=== PATIENT | male | born 1950 | race Caucasian/White ===

== ENCOUNTER 2017-08-03 06:00 | Emergency (ER) | payer OTHER ==
[2017-08-03] MEDS ORDERED: LIDOCAINE 1% INJ-PF (10 MG/ML) 30 ML SDV INJ ONE (06:27)
[2017-08-03] MEDS ORDERED: DIPH/PERTUSS(ACELL)/TETANUS VAC/PF 0.5 ML SYR (>=10YO) IM ONE (06:29)
--- NOTE | 2017-08-03 06:37 | ER Document Report ---
ED General - General Chief Complaint: Laceration Stated Complaint: LACERATION TO FINGER Time Seen by Provider: 08/03/17 06:16 Mode of Arrival: Medic Information source: Patient Notes: 66-year-old male who is on Plavix presents with a laceration to his left hand first digit. Patient notes he was drinking tonight 3-4 beers, pt dneies any other injuries. pt found covered in blood TRAVEL OUTSIDE OF THE [place] IN LAST 30 DAYS: No - HPI Onset: Just prior to arrival Onset/Duration: Sudden Quality of pain: No pain Severity: Mild Pain Level: Denies Associated symptoms: Other Exacerbated by: Denies Relieved by: Denies Similar symptoms previously: No Recently seen / treated by doctor: No - Related Data Allergies/Adverse Reactions: No Known Allergies Allergy (Verified 08/03/17 06:17) Past Medical History - Social History Smoking Status: Unknown if Ever Smoked Cigarette use (# per day): No Chew tobacco use (# tins/day): No Smoking Education Provided: No Family History: Reviewed & Not Pertinent Patient has suicidal ideation: No Patient has homicidal ideation: No - Past Medical History Cardiac Medical History: Reports: Hx Heart Attack, Hx Hypertension Pulmonary Medical History: Reports: Hx COPD Renal/ Medical History: Denies: Hx Peritoneal Dialysis Review of Systems - Review of Systems Notes: REVIEW OF SYSTEMS: CONSTITUTIONAL : Denies fever, chills, or sweats. Denies recent illness. EENT: Denies eye, ear, throat, or mouth pain or symptoms. Denies nasal or sinus congestion or discharge. Denies throat, tongue, or mouth swelling or difficulty swallowing. CARDIOVASCULAR: Denies chest pain. Denies palpitations or racing or irregular heart beat. Denies ankle edema. RESPIRATORY: Denies cough, cold, or chest congestion. Denies shortness of breath, difficulty breathing, or wheezing. GASTROINTESTINAL: Denies abdominal pain or distention. Denies nausea, vomiting , or diarrhea. Denies blood in vomitus, stools, or per rectum. Denies black, tarry stools. Denies constipation. GENITOURINARY: Denies difficulty urinating, painful urination, burning, frequency, blood in urine, or discharge. MUSCULOSKELETAL: Denies back or neck pain or stiffness. Denies joint pain or swelling. SKIN: admits to laceration HEMATOLOGIC : admits to easy bleeding LYMPHATIC: Denies swollen, enlarged glands. NEUROLOGICAL: Denies confusion or altered mental status. Denies passing out or loss of consciousness. Denies dizziness or lightheadedness. Denies headache. Denies weakness or paralysis or loss of use of either side. Denies problems with gait or speech. Denies sensory loss, numbness, or tingling. Denies seizures. PSYCHIATRIC: Denies anxiety or stress. Denies depression, suicidal ideation, or homicidal ideation. ALL OTHER SYSTEMS REVIEWED AND NEGATIVE. PHYSICAL EXAMINATION: GENERAL: Well-appearing, well-nourished and in no acute distress. HEAD: Atraumatic, normocephalic. EYES: Pupils equal round and reactive to light, extraocular movements intact, conjunctiva are normal. ENT: Nares patent, oropharynx clear without exudates. Moist mucous membranes. NECK: Normal range of motion, supple without lymphadenopathy LUNGS: Breath sounds clear to auscultation bilaterally and equal. No wheezes rales or rhonchi. HEART: Regular rate and rhythm without murmurs ABDOMEN: Soft, nontender, nondistended abdomen. No guarding, no rebound. No masses appreciated. Musculoskeletal: Normal range of motion, no pitting or edema. No cyanosis. NEUROLOGICAL: Cranial nerves grossly intact. Normal speech, normal gait. Normal sensory, motor exams PSYCH: Normal mood, normal affect. SKIN: laceration 4cm of the thumb palm concerning for arterial bleed. pt is covered in dried/fresh blood, washed extensively by staff, no other injuries noted Dictation was performed using [employer] voice recognition software Physical Exam - Vital signs Vitals: Pulse Ox 97 08/03/17 06:14 Course - Re-evaluation Re-evalutation: 08/03/17 06:52 Patient was completely covered in blood, the only injury found was a laceration of the finger, blood work pending, I did contact the surgeon Dr. Tirado for my concerns of arterial bleed he is evaluating the patient at this time 08/03/17 07:03 Patient's laceration was repaired by the surgeon, splint was placed. he requests follow up for wound rechecks as well as antibiotics for 5 days After performing a Medical Screening Examination, I estimate there is LOW risk for OPEN FRACTURE, COMPARTMENT SYNDROME, TENDON RUPTURE, ACUTE NEUROVASCULAR INJURY, or RETAINED FOREIGN BODY, thus I consider the discharge disposition reasonable. Also, there is no evidence or peritonitis, sepsis, or toxicity. I have reevaluated this patient multiple times and no significant life threatening changes are noted. The patient and I have discussed the diagnosis and risks, and we agree with discharging home with close follow-up with the understanding that symptoms and presentations can change. We also discussed returning to the Emergency Department immediately if new or worsening symptoms occur. We have discussed the symptoms which are most concerning (e.g., changing or worsening pain, fever, numbness, weakness, cool or painful digits) that necessitate immediate return. 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, Alcohol use Finger laceration Qualifiers: Encounter type: initial encounter Finger: thumb Damage to nail status: without damage Foreign body presence: unspecified Laterality: left Qualified Code(s): S61.012A - Laceration without foreign body of left thumb without damage to nail , initial encounter Condition: Stable Disposition: HOME, SELF-CARE Instructions: Laceration Care ([facility]) Additional Instructions: Follow-up for wound recheck in 3 days, please take antibiotics appropriately, return immediately if there is any sign of infection worsening bleeding or any other concerns Return for removal of sutures in 2 weeks Prescriptions: Cephalexin Monohydrate [Keflex 500 mg Capsule] 500 mg PO Q6H 5 Days capsule Referrals: ADEN SUAZO DO [ACTIVE STAFF] - 08/06/17
[2017-08-03 06:47] LABS: ALANINE AMINOTRANSFERASE 21 U/L (21-72); ALBUMIN 4.3 g/dL (3.5-5.0); ALCOHOL 108 mg/dL (NONE DETECTED); ALKALINE PHOSPHATASE 50 U/L (38-126); ANION GAP 12 (5-19); ASPARTATE AMINO TRANSFERASE 16 U/L (17-59); BILIRUBIN,DIRECT 0.1 mg/dL (0.0-0.4); BILIRUBIN,TOTAL 0.3 mg/dL (0.2-1.3); BLOOD UREA NITROGEN 15 mg/dL (7-20); CALCIUM 9.8 mg/dL (8.4-10.2); CARBON DIOXIDE 29 mmol/L (22-30); CHLORIDE 102 mmol/L (98-107); GLUCOSE 133 mg/dL (75-110); POTASSIUM 3.9 mmol/L (3.6-5.0); SODIUM 143.4 mmol/L (137-145); TOTAL PROTEIN 6.2 g/dL (6.3-8.2)
[2017-08-03 06:48] LABS: MEAN CORPUSCULAR HEMOGLOBIN 33.4 pg (27.0-33.4); MEAN CORPUSCULAR HGB CONC 34.2 g/dL (32.0-36.0); MEAN CORPUSCULAR VOLUME 98 fl (80-97); PLATELET COUNT 182 10^3/uL (150-450); RED CELL DISTRIBUTION WIDTH 13.9 % (11.5-14.0)
[2017-08-03 07:23] LABS: INTERNATIONAL RATION (INR) 0.92; PROTHROMBIN TIME 12.8 SEC (11.4-15.4)
[2017-08-03 07:26] VITALS: BP 109/77
--- NOTE | 2017-08-03 07:27 | PDOC CONSULTATION ---
Consultation Consult Date: 08/03/17 Consult reason:: L thumb laceration History of Present Illness History of Present Illness: FESTUS ORTIZ is a 66 year old male with a hx of sharp laceration of the left thumb which occurred this AM early as he was cutting cheese on a cutting board. The patient experienced a moderate loss of blood as he is on Plavix. Past Medical History Cardiac Medical History: Reports: Myocardial Infarction, Hypertension Pulmonary Medical History: Reports: Chronic Obstructive Pulmonary Disease (COPD) Social History Information Source: Patient Lives with: Alone Smoking Status: Unknown if Ever Smoked Frequency of Alcohol Use: Heavy Last Alcohol Use: 08/03/17 Drugs: None Hx Prescription Drug Abuse: No Family History Family History: Reviewed & Not Pertinent Parental Family History Reviewed: No Children Family History Reviewed: No Sibling(s) Family History Reviewed.: No Medication/Allergy Home Medications: Cephalexin Monohydrate [Keflex 500 mg Capsule] 500 mg PO Q6H 5 Days capsule Allergies/Adverse Reactions: No Known Allergies Allergy (Verified 08/03/17 06:17) Physical Exam Vital Signs: Temp Pulse Resp BP Pulse Ox 97.5 F 12 103/58 L 96 08/03/17 06:18 08/03/17 07:01 08/03/17 07:01 08/03/17 07:01 Intake & Output 08/02/17 08/03/17 08/04/17 06:59 06:59 06:59 Weight 86.183 kg General appearance: PRESENT: no acute distress Eye exam: PRESENT: EOMI Neck exam: PRESENT: full ROM Front of Hands Image: 1 - left thumb laceration @ 2 cm v, volar aspect, no ROM or sensation affected Results Laboratory Results: 08/03/17 05:24 08/03/17 08/03/17 05:24 05:24 Seg Neutrophils % Not Reportable Lymphocytes % Not Reportable Monocytes % Not Reportable Eosinophils % Not Reportable Basophils % Not Reportable Absolute Neutrophils Not Reportable Absolute Lymphocytes Not Reportable Absolute Monocytes Not Reportable Absolute Eosinophils Not Reportable Absolute Basophils Not Reportable Sodium 143.4 Potassium 3.9 Chloride 102 Carbon Dioxide 29 Anion Gap 12 BUN 15 Creatinine 0.90 Est GFR ( Amer) > 60 Est GFR (Non-Af Amer) > 60 Glucose 133 H Calcium 9.8 Total Bilirubin 0.3 AST 16 L ALT 21 Alkaline Phosphatase 50 Total Protein 6.2 L Albumin 4.3 Assessment & Plan - Diagnosis (2) Finger laceration Qualifiers: Encounter type: initial encounter Finger: thumb Damage to nail status: without damage Foreign body presence: unspecified Laterality: left Qualified Code(s): S61.012A - Laceration without foreign body of left thumb without damage to nail, initial encounter Is this a current diagnosis for this admission?: Yes (3) Hx of detention use of blood thinners Is this a current diagnosis for this admission?: Yes Plan: A/ Left thumb distal phalanx volar aspect laceration No RO or sensation loss P/ Repair in ER under local anesthetic Wound check in 24 hrs Keep wound dry until sutures are removed (2 weeks) keep splint in place Keflex 500 mg po qid x 3 days
[2017-08-03 07:33] LABS: ABSOLUTE LYMPHOCYTES# (MANUAL) 5.5 10^3/uL (0.5-4.7); ABSOLUTE MONOCYTES # (MANUAL) 0.3 10^3/uL (0.1-1.4); BASOPHILS % (MANUAL) 0 % (0-2); EOSINOPHILS % (MANUAL) 3 % (0-6); LYMPHOCYTES % (MANUAL) 57 % (13-45); MONOCYTES % (MANUAL) 3 % (3-13); SEGMENTED NEUTROPHILS % (MAN) 33 % (42-78); TOTAL CELLS COUNTED 100
[2017-08-03 07:36] LABS: HYPOCHROMASIA SLIGHT; PLATELET COMMENT ADEQUATE; POLYCHROMASIA SLIGHT
--- NOTE | 2017-08-03 07:54 | OPERATIVE REPORT E ---
Operative Report NAME: FESTUS ORTIZ : 1950 AGE: 66Y DATE OF SURGERY: 08/03/2017 ROOM: PREOPERATIVE DIAGNOSIS: SHARP LACERATION, 2 CM LONG, LEFT THUMB DISTAL PHALANX VOLAR ASPECT. POSTOPERATIVE DIAGNOSIS: SHARP LACERATION, 2 CM LONG, LEFT THUMB DISTAL PHALANX VOLAR ASPECT. PROCEDURE: Primary closure of 2 cm laceration left thumb. SURGEON: LUZ CORDERO M.D. ANESTHESIA: Local finger block done with 2 mL of 1% lidocaine without epinephrine plus 1 mL of lidocaine without epinephrine as local infiltration. BLOOD LOSS: Minimal. COMPLICATIONS: None. INDICATION/FINDINGS: This is a 66-year-old male, who is obvious intoxicated, presented to the emergency with a bleeding left thumb. According to the patient, he was slicing some cheese when he accidentally cut his left thumb. The laceration is located in the left hand, distal phalanx of the thumb on the volar aspect. It is approximately 2 cm. DESCRIPTION OF PROCEDURE: In the emergency room, the patient's left hand was prepped with Betadine with gentle scrubbing. Following this, local anesthetic was provided as above. The incision was closed with interrupted multiple 3-0 nylon sutures, topical antibiotic and sterile dressing with finger splint, Kerlix and TOM bandage applied. The patient tolerated the procedure well. He will be seen in the emergency room in 24 hours for wound check. He was recommended to keep the splint in place, to keep the finger dry for the next 2 weeks until the sutures are removed and he will be prescribed Keflex 500 mg p.o. 4 times a day for 3 days by the emergency room physician. DICTATING PHYSICIAN: LUZ CORDERO M.D. [id number] PHY#: [id number] ID: [id number] JOB#: [id number] ACCT: [id number] cc:LUZ CORDERO M.D. > MTDD
== END 2017-08-03 07:37 | disposition home or self-care (01) ==
LOC: ER 06:00
PROC: 0HQGXZZ Repair Left Hand Skin, External Approach (ICD-10-PCS; principal; 2017-08-03)
DX: S61.012A Laceration without foreign body of left thumb without damage to nail, initial encounter (principal); W26.0XXA Contact with knife, initial encounter; Y93.G1 Activity, food preparation and clean up; I10 Essential (primary) hypertension; J44.9 Chronic obstructive pulmonary disease, unspecified; I25.2 Old myocardial infarction; Z79.02 Long term (current) use of antithrombotics/antiplatelets; Z72.89 Other problems related to lifestyle; Z23 Encounter for immunization
CPT/HCPCS: 99284; 90471; 36415; 80307; 85025; 85610; 80053; 90715; 12001; J3490

== ENCOUNTER 2018-03-07 20:50 | Emergency (ER) | payer MEDICARE, OTHER ==
[2018-03-07] MEDS ORDERED: LIDOCAINE 1% INJ-PF (10 MG/ML) 30 ML SDV INJ ONE (22:29)
--- NOTE | 2018-03-08 00:03 | ER Document Report ---
ED General - General Chief Complaint: Laceration Stated Complaint: LACERATION TO HAND Notes: Patient is a 67-year-old male who presents with a laceration to his left dorsal hand as well as his left third digit after accidentally striking his hand on the base of a wooden frame. States this happened just prior to arrival. States he lost his balance, was reaching for something to hold onto to prevent himself from falling when he accidentally hit the back of his hand. He notes a mild, throbbing pain to the affected area. Nothing improves or worsens the pain. Denies history of similar injuries in the past. He is right-hand. He denies any additional injuries today. Denies that there is any lightheadedness or presyncope that triggered the fall stating it was simply a loss of balance. TRAVEL OUTSIDE OF THE [place] IN LAST 30 DAYS: No - Related Data Allergies/Adverse Reactions: No Known Allergies Allergy (Verified 08/03/17 06:17) Past Medical History - General Information source: Patient - Social History Smoking Status: Never Smoker Frequency of alcohol use: None Drug Abuse: None Family History: Reviewed & Not Pertinent Patient has suicidal ideation: No Patient has homicidal ideation: No - Past Medical History Cardiac Medical History: Reports: Hx Heart Attack, Hx Hypertension Pulmonary Medical History: Reports: Hx COPD Renal/ Medical History: Denies: Hx Peritoneal Dialysis Review of Systems - Review of Systems Notes: Constitutional: Negative for fever. Eyes: Negative for visual changes. ENT: Negative for facial injury Cardiovascular: Negative for chest injury. Respiratory: Negative for shortness of breath. Gastrointestinal: Negative for abdominal injury. Genitourinary: Negative for genital injury Musculoskeletal: Positive for left hand injury Skin: Positive for laceration/abrasions. Neurological: Negative for head injury. Physical Exam - Vital signs Vitals: Temp Pulse Resp BP Pulse Ox 98.6 F 55 L 16 129/79 H 95 03/07/18 21:25 03/07/18 21:25 03/07/18 21:25 03/07/18 21:25 03/07/18 21:25 Interpretation: Normal Notes: PHYSICAL EXAMINATION: GENERAL: Well-appearing, well-nourished and in no acute distress. HEAD: Atraumatic, normocephalic. EYES: sclera anicteric, conjunctiva are normal. ENT: Moist mucous membranes. NECK: Normal range of motion LUNGS: Normal work of breathing HEART: 2+ radial pulses bilaterally, capillary refill less than 2 seconds in all digits of the left hand. EXTREMITIES: no pitting or edema. No cyanosis. Full flexion and extension against resistance at the DIP, PIP and MCP of all digits of the left hand NEUROLOGICAL: No focal neurological deficits. Moves all extremities spontaneously and on command. RMU motor and sensory distribution intact PSYCH: Normal mood, normal affect. SKIN: Warm, Dry, normal turgor, there is a 3 cm laceration at the level of the fourth MCP of the left hand over the dorsal surface extending from the knuckle itself toward the wrist. The patient also has a 1.25 cm laceration on the third digit on the dorsal surface at the level of the PIP. Course - Re-evaluation Re-evalutation: 03/08/18 00:02 Patient presents with a 3 cm laceration at the level of the fourth MCP of the left hand over the dorsal surface extending from the knuckle itself toward the wrist. The patient also has a 1.25 cm laceration on the third digit on the dorsal surface at the level of the PIP. These wounds were cleaned and irrigated and primarily closed. The patient is already up-to-date on tetanus immunization. Full flexion extension at the DIP, PIP and MCP of all digits of the left hand. Patient is right-hand dominant. No indication for imaging of the hand. No evidence of foreign body. At this time will discharge with return precautions and follow-up recommendations. Verbal discharge instructions given a the bedside and opportunity for questions given. Medication warnings reviewed. Patient is in agreement with this plan and has verbalized understanding of return precautions and the need for primary care follow-up in the next 1 week - Vital Signs Vital signs: Temp Pulse Resp BP Pulse Ox 98.6 F 76 16 128/65 H 98 03/08/18 00:18 03/08/18 00:18 03/08/18 00:18 03/08/18 00:18 03/08/18 00:18 Procedures - Laceration/Wound Repair Left 3rd digit Wound length (cm): 1.3 Wound's Depth, Shape: Superficial Laceration pre-procedure: Sterile PPE donned Anesthetic type: 1% Lidocaine Volume Anesthetic (mLs): 1 Wound explored: Clean Irrigated w/ Saline (mLs): 500 Wound Debrided: Minimal Wound Repaired With: Sutures Suture Size/Type: 5:0, Prolene Number of Sutures: 2 Layer Closure?: No Deep Layer Suture Size/Type: 5:0 Post-procedure wound care: Sterile dressing applied Post-procedure NV exam normal: Yes Complications: No Left hand Wound length (cm): 3 Wound's Depth, Shape: Superficial Laceration pre-procedure: Sterile PPE donned Anesthetic type: 1% Lidocaine Volume Anesthetic (mLs): 1 Wound explored: Clean Irrigated w/ Saline (mLs): 500 Wound Debrided: Minimal Wound Repaired With: Sutures Suture Size/Type: 5:0, Prolene Number of Sutures: 4 Layer Closure?: No Post-procedure wound care: Sterile dressing applied Post-procedure NV exam normal: Yes Complications: No Discharge - Discharge Clinical Impression: Laceration of multiple sites of right hand and fingers Qualifiers: Encounter type: initial encounter Qualified Code(s): S61.411A - Laceration without foreign body of right hand, initial encounter Condition: Good Disposition: HOME, SELF-CARE Additional Instructions: Please return to your primary doctor, the ED, or an urgent care in 7 days for suture removal. Return immediately if you develop spreading redness around the wound, pus from the wound, worsening pain, or a fever of >100.4. Keep the area clean and dry. Wash gently with soap and water twice daily and cover with antibiotic ointment.
[2018-03-08 00:18] VITALS: BP 128/65
== END 2018-03-08 00:18 | disposition home or self-care (01) ==
LOC: ER 20:50
DX: S61.412A Laceration without foreign body of left hand, initial encounter (principal); S61.213A Laceration without foreign body of left middle finger without damage to nail, initial encounter; W22.8XXA Striking against or struck by other objects, initial encounter; I10 Essential (primary) hypertension; J44.9 Chronic obstructive pulmonary disease, unspecified
CPT/HCPCS: 12002; 99283; J3490

== ENCOUNTER 2018-04-07 18:06 | Inpatient (IN) | payer MEDICARE, OTHER ==
[2018-04-07] MEDS ORDERED: RINGERS SOLUTION,LACTATED 1,000 ML IV ONE (18:42)
--- NOTE | 2018-04-07 18:46 | ER Document Report ---
ED General - General Chief Complaint: Shortness Of Breath Stated Complaint: GENERAL WEAKNESS Time Seen by Provider: 04/07/18 18:25 Mode of Arrival: Medic Information source: Patient Notes: 67-year-old man with a history of coronary artery disease, hypertension, dyslipidemia who is brought to the hospital by EMS from urgent care. Patient complains of increased weakness, decreased p.o. intake, vomiting x2. He also reports some shortness of breath. He denies that the shortness of breath is worse with exertion and says it really improves his breathing. He denies any chest pain. He denies abdominal pain or fever. Patient states he has been having the symptoms for the last week. He is 2 pack/day smoker and he drinks 3 rum and Cokes a day. TRAVEL OUTSIDE OF THE [place] IN LAST 30 DAYS: No - HPI Onset: Last week Quality of pain: No pain Severity: None Pain Level: Denies Associated symptoms: Nausea, Vomiting, Shortness of breath. denies: Chest pain, Chills, Nonproductive cough, Fever Exacerbated by: Denies Relieved by: Denies Similar symptoms previously: Yes Recently seen / treated by doctor: Yes - Related Data Allergies/Adverse Reactions: No Known Allergies Allergy (Verified 04/07/18 22:53) Past Medical History - General Information source: Patient - Social History Smoking Status: Current Every Day Smoker Cigarette use (# per day): Yes - 2 packs/day Chew tobacco use (# tins/day): No Smoking Education Provided: No Frequency of alcohol use: 3 Rum & Cokes a day Drug Abuse: None Lives with: Alone Family History: Reviewed & Not Pertinent Patient has suicidal ideation: No Patient has homicidal ideation: No - Past Medical History Cardiac Medical History: Reports: Hx Heart Attack, Hx Hypertension Pulmonary Medical History: Reports: Hx COPD Renal/ Medical History: Denies: Hx Peritoneal Dialysis Surgical Hx: Negative Review of Systems - Review of Systems Constitutional: Chills. denies: Fever EENT: No symptoms reported Cardiovascular: denies: Chest pain, Palpitations, Heart racing Respiratory: Short of breath. denies: Stridor, Wheezing Gastrointestinal: Nausea, Vomiting. denies: Abdominal pain Genitourinary: No symptoms reported Male Genitourinary: No symptoms reported Musculoskeletal: No symptoms reported Skin: No symptoms reported Hematologic/Lymphatic: No symptoms reported Neurological/Psychological: See HPI Physical Exam - Vital signs Vitals: Resp 22 H 04/07/18 18:25 Notes: Physical exam: GENERAL: Patient is alert and oriented x3, no acute distress. Blood pressure is 167/95, pulse 81, O2 sat 98% on room air and his respiratory rate is 13. HEAD: Atraumatic, normocephalic. EYES: Pupils equal round and reactive to light, extraocular movements intact, sclera anicteric, conjunctiva are normal. ENT: TMs normal, nares patent, oropharynx clear without exudates. Moist mucous membranes. NECK: Normal range of motion, supple without obvious mass or JVD. LUNGS: Breath sounds clear to auscultation bilaterally and equal. No wheezes rales or rhonchi. HEART: Regular rate and rhythm without murmurs, rubs or gallops. ABDOMEN: Soft, normoactive bowel sounds. No tenderness to palpation. No guarding, no rebound. No masses appreciated. EXTREMITIES: Normal range of motion, no pitting or edema. No clubbing or cyanosis. NEUROLOGICAL: Cranial nerves II through XII grossly intact. Normal speech, moving all extremities. PSYCH: Normal mood, normal affect. SKIN: Warm, Dry, normal turgor, no rashes or lesions noted. Course - Vital Signs Vital signs: Temp Pulse Resp BP Pulse Ox 97.9 F 70 16 141/78 H 98 04/07/18 22:39 04/07/18 22:39 04/07/18 22:39 04/07/18 22:39 04/07/18 22:39 - Laboratory Result Diagrams: 04/07/18 17:45 04/07/18 21:00 Laboratory results interpreted by me: 04/07/18 04/07/18 04/07/18 17:45 17:45 17:45 MCH 34.2 H Plt Count 148 L Seg Neutrophils % 80.5 H Lymphocytes % 12.5 L Sodium 123.7 L Chloride 83 L Serum Osmolality 255 L ALT 15 L TSH Urine Ketones Urine Blood Urine Osmolality 04/07/18 04/07/18 04/07/18 17:45 20:02 20:02 MCH Plt Count Seg Neutrophils % Lymphocytes % Sodium Chloride Serum Osmolality ALT TSH 0.33 L Urine Ketones 20 H Urine Blood SMALL H Urine Osmolality 291 L - Diagnostic Test Radiology reviewed: Image reviewed, Reports reviewed - Chest x-ray no infiltrates or effusions. CT shows no acute intracranial pathology - EKG Interpretation by Me Rate: Normal Rhythm: NSR - EKG shows normal sinus rhythm with a ventricular rate of 79, no acute ST-T wave changes Critical Care Note - Critical Care Note Total time excluding time spent on procedures (mins): 60 Discharge - Discharge Clinical Impression: Hyponatremia, Generalized weakness Condition: Stable Disposition: ADMITTED INPATIENT Admitting Provider: Hospitalist - dr smart Unit Admitted: [facility]
[2018-04-07 18:53] LABS: ABSOLUTE MONOCYTES (AUTO) 0.5 10^3/uL (0.1-1.4); EOSINOPHILS % (AUTO) 0.1 % (0-6); HEMOGLOBIN 15.9 g/dL (13.5-17.0); TOTAL CELLS COUNTED % (AUTO) 100 %
[2018-04-07 18:56] LABS: ABSOLUTE LYMPHOCYTES (AUTO) 0.9 10^3/uL (0.5-4.7); ABSOLUTE NEUT (AUTO) 5.9 10^3/uL (1.7-8.2); BASOPHILS % (AUTO) 0.1 % (0-2); HEMATOCRIT 44.5 % (37.9-51.0); LYMPHOCYTES % (AUTO) 12.5 % (13-45); MEAN CORPUSCULAR HEMOGLOBIN 34.2 pg (27.0-33.4); MEAN CORPUSCULAR HGB CONC 35.8 g/dL (32.0-36.0); MEAN CORPUSCULAR VOLUME 96 fl (80-97); MONOCYTES % (AUTO) 6.8 % (3-13); PLATELET COUNT 148 10^3/uL (150-450); RED BLOOD COUNT 4.65 10^6/uL (4.35-5.55); SEGMENTED NEUTROPHILS % (AUTO) 80.5 % (42-78); WHITE BLOOD COUNT 7.3 10^3/uL (4.0-10.5)
[2018-04-07 19:00] LABS: ALANINE AMINOTRANSFERASE 15 U/L (21-72); ALBUMIN 4.8 g/dL (3.5-5.0); ALKALINE PHOSPHATASE 72 U/L (38-126); ANION GAP 14 (5-19); ASPARTATE AMINO TRANSFERASE 29 U/L (17-59); BILIRUBIN,DIRECT 0.4 mg/dL (0.0-0.4); BILIRUBIN,TOTAL 1.1 mg/dL (0.2-1.3); BLOOD UREA NITROGEN 8 mg/dL (7-20); CALCIUM 9.8 mg/dL (8.4-10.2); CARBON DIOXIDE 27 mmol/L (22-30); CHLORIDE 83 mmol/L (98-107); CREATINE KINASE 120 U/L (55-170); GLUCOSE 105 mg/dL (75-110); POTASSIUM 3.9 mmol/L (3.6-5.0); SODIUM 123.7 mmol/L (137-145); TOTAL PROTEIN 7.5 g/dL (6.3-8.2)
--- NOTE | 2018-04-07 19:04 | RADIOLOGY REPORT (SQ) ---
EXAM DESCRIPTION: CT HEAD WITHOUT COMPLETED DATE/TIME: 04/07/2018 6:54 pm REASON FOR STUDY: confusion COMPARISON: None. TECHNIQUE: Axial images acquired through the brain without intravenous contrast. Images reviewed wi th bone, brain and subdural windows. Additional sagittal and coronal reconstructions were generated. Images stored on PACS. All CT scanners at this facility use dose modulation, iterative reconstruction, and/or weight based d osing when appropriate to reduce radiation dose to as low as reasonably achievable (ALARA). [facility]: Dose Right [facility]: CareDose [facility]: Dose Right [facility]: Teradose 4D [facility]: Vessix Vascular RADIATION DOSE: CT Rad equipment meets quality standard of care and radiation dose reduction techniq ues were employed. CTDIvol: 53.2 mGy. DLP: 1044 mGy-cm. mGy. LIMITATIONS: None. FINDINGS: VENTRICLES: Normal size and contour. CEREBRUM: No masses. No hemorrhage. No midline shift. No evidence for acute infarction. Normal gra y/white matter differentiation. No areas of low density in the white matter. CEREBELLUM: No masses. No hemorrhage. No alteration of density. No evidence for acute infarction. EXTRAAXIAL SPACES: No fluid collections. No masses. ORBITS AND GLOBE: No intra- or extraconal masses. Normal contour of globe without masses. CALVARIUM: No fracture. PARANASAL SINUSES: No fluid or mucosal thickening. SOFT TISSUES: No mass or hematoma. OTHER: No other significant finding. IMPRESSION: NORMAL BRAIN CT WITHOUT CONTRAST. EVIDENCE OF ACUTE STROKE: NO. COMMENT: Quality ID # [id number]: Final reports with documentation of one or more dose reduction techniques (e.g., Automated exposure control, adjustment of the mA and/or kV according to patient size, use of iterative reconstruction technique) TECHNICAL DOCUMENTATION: JOB ID: [id number] [facility]- All Rights Reserved Reading location - IP/workstation name: [email or web address]
[2018-04-07 19:11] LABS: CREATINE KINASE MB 2.54 ng/mL (<4.55)
--- NOTE | 2018-04-07 19:11 | RADIOLOGY REPORT (SQ) ---
EXAM DESCRIPTION: CHEST SINGLE VIEW COMPLETED DATE/TIME: 04/07/2018 6:56 pm REASON FOR STUDY: chest pain COMPARISON: None. EXAM PARAMETERS: NUMBER OF VIEWS: One view. TECHNIQUE: Single frontal radiographic view of the chest acquired. RADIATION DOSE: NA LIMITATIONS: None. FINDINGS: LUNGS AND PLEURA: No opacities, masses or pneumothorax. No pleural effusion. MEDIASTINUM AND HILAR STRUCTURES: No masses. Contour normal. HEART AND VASCULAR STRUCTURES: Heart normal in size. Normal vasculature. BONES: No acute findings. HARDWARE: None in the chest. OTHER: No other significant finding. IMPRESSION: NO ACUTE RADIOGRAPHIC FINDING IN THE CHEST. TECHNICAL DOCUMENTATION: JOB ID: [id number] [employer]- All Rights Reserved Reading location - IP/workstation name: [email or web address]
[2018-04-07 19:15] LABS: TROPONIN I < 0.012 ng/mL
[2018-04-07 20:05] LABS: FREE T3 3.47 pg/mL (2.77-5.27); FREE T4 (FREE THYROXINE) 1.46 ng/dL (0.78-2.19)
[2018-04-07 20:19] LABS: THYROID STIMULATING HORMONE 0.33 uIU/mL (0.47-4.68)
[2018-04-07 20:38] LABS: OSMOLALITY,URINE 291 mOsm/kg (300-900)
[2018-04-07 20:39] LABS: URINE SODIUM 57 mmol/L (30-90)
[2018-04-07] MEDS ORDERED: IPRATROPIUM/ALBUTEROL 0.5-2.5 MG/3 ML AMPUL NEB PRN (20:40)
[2018-04-07] MEDS ORDERED: ACETAMINOPHEN 325 MG TABLET PO PRN (20:40)
[2018-04-07] MEDS ORDERED: DIAZEPAM 5 MG TABLET PO ONE (20:41)
[2018-04-07 21:22] LABS: ANION GAP 14 (5-19); BLOOD UREA NITROGEN 8 mg/dL (7-20); CARBON DIOXIDE 24 mmol/L (22-30); CHLORIDE 87 mmol/L (98-107); GLUCOSE 111 mg/dL (75-110); POTASSIUM 4.1 mmol/L (3.6-5.0); SODIUM 125.2 mmol/L (137-145)
[2018-04-07] MEDS ORDERED: NORMAL SALINE 1000 ML 1,000 ML IV PRN (21:28)
[2018-04-07] MEDS ORDERED: FUROSEMIDE INJ/PF 20 MG/2 ML SDV IV ONE (21:53)
[2018-04-07 22:13] LABS: APPEARANCE,URINE CLEAR; BILIRUBIN,URINE NEGATIVE (NEGATIVE); COLOR,URINE YELLOW; GLUCOSE, URINE NEGATIVE (NEGATIVE); KETONES,URINE 20 mg/dL (NEGATIVE); LEUKOCYTE ESTERASE,URINE NEGATIVE (NEGATIVE); NITRITE,URINE NEGATIVE (NEGATIVE); PROTEIN,URINE NEGATIVE (NEGATIVE); URINE SPECIFIC GRAVITY 1.009; UROBILINOGEN,URINE NEGATIVE mg/dL (<2.0)
[2018-04-07] MEDS ORDERED: ATENOLOL 50 MG TABLET PO ONE (22:15)
[2018-04-07 22:19] LABS: URINE AMPHETAMINES SCREEN NEGATIVE; URINE BARBITURATES SCREEN NEGATIVE; URINE BENZODIAZEPINES SCREEN NEGATIVE; URINE COCAINE SCREEN NEGATIVE; URINE MARIJUANA (THC) SCREEN NEGATIVE; URINE METHADONE SCREEN NEGATIVE; URINE PHENCYCLIDINE SCREEN NEGATIVE
[2018-04-07] MEDS: DIAZEPAM 5 MG TABLET PO SCH (23:02)
--- NOTE | 2018-04-07 23:38 | PDOC H&P ---
History of Present Illness Admission Date/PCP: 04/07/18 20:43 ALEIDA HUANG MD Patient complains of: Anorexia, nausea vomiting History of Present Illness: FESTUS ORTIZ is a 67 year old male with a past medical history of coronary artery disease with 2 stents placed in 2005, tobacco and alcohol dependence. Patient presents with 3 days of generalized weakness, anorexia, nausea and vomiting x2 of gastric content. He denies abdominal pain, fever chills, chest pain or shortness of breath. In the emergency room he is found to have a sodium of 123. He is referred to the hospitalist for admission. Patient admits to excessive thirst drinking tap water continuously, admitting clear colored urine denying recent change in medications, he admits 5 mixed drinks per day and a persistent [id number] of smoking. Past Medical History Cardiac Medical History: Reports: Myocardial Infarction, Hypertension Pulmonary Medical History: Reports: Chronic Obstructive Pulmonary Disease (COPD) Social History Information Source: Patient, Emergency Med Personnel, [facility] Records Lives with: Alone Smoking Status: Current Every Day Smoker Cigarettes Packs Per Day: 1.5 Number of Years Smokin Frequency of Alcohol Use: Heavy Drugs: None Hx Prescription Drug Abuse: No - Advance Directive Resuscitation Status: Full Code Family History Family History: Other - Uncle with lung cancer Parental Family History Reviewed: Yes Children Family History Reviewed: Yes Sibling(s) Family History Reviewed.: Yes Medication/Allergy Home Medications: Atenolol [Tenormin] 25 mg PO Q12 04/07/18 Atorvastatin Calcium [Lipitor 80 mg Tablet] 80 mg PO QHS 04/07/18 Citalopram Hydrobromide [Celexa 40 mg Tablet] 40 mg PO DAILY 04/07/18 Clopidogrel Bisulfate [Plavix 75 mg Tablet] 75 mg PO DAILY 04/07/18 Gabapentin [Neurontin 300 mg Capsule] 300 mg PO Q8 04/07/18 Losartan/Hydrochlorothiazide [Hyzaar 100-25 Tablet] 1 tab PO DAILY 04/07/18 Nifedipine [Nifedipine ER] 30 mg PO DAILY 04/07/18 Ranitidine HCl [Zantac] 300 mg PO DAILY 04/07/18 Tamsulosin HCl [Flomax 0.4 mg Cap.sr] 0.4 mg PO DAILY 04/07/18 Valacyclovir HCl [Valtrex 500 mg Tablet] 500 mg PO DAILY 04/07/18 Allergies/Adverse Reactions: No Known Allergies Allergy (Verified 04/07/18 22:53) Review of Systems Constitutional: PRESENT: as per HPI, anorexia, fatigue, weakness, weight loss. ABSENT: fever(s), headache(s) Eyes: ABSENT: visual disturbances Ears: ABSENT: hearing changes Cardiovascular: ABSENT: chest pain, dyspnea on exertion, edema, orthropnea, palpitations Respiratory: PRESENT: cough. ABSENT: dyspnea, sputum Gastrointestinal: PRESENT: as per HPI, nausea, vomiting. ABSENT: abdominal pain, bloating, coffee ground emesis, constipation Genitourinary: ABSENT: dysuria, hematuria Musculoskeletal: ABSENT: joint swelling Integumentary: ABSENT: rash, wounds Neurological: PRESENT: as per HPI. ABSENT: abnormal gait, abnormal speech, confusion, dizziness, focal weakness, syncope Psychiatric: ABSENT: anxiety, depression, homidical ideation, suicidal ideation Endocrine: ABSENT: cold intolerance, heat intolerance, polydipsia, polyuria Hematologic/Lymphatic: ABSENT: easy bleeding, easy bruising Physical Exam Vital Signs: Temp Pulse Resp BP Pulse Ox 21 H 119/88 H 95 04/07/18 21:02 04/07/18 21:02 04/07/18 21:02 Intake & Output 04/06/18 04/07/18 04/08/18 11:59 11:59 11:59 Weight 80 kg General appearance: PRESENT: cooperative, mild distress, thin. ABSENT: disheveled Head exam: PRESENT: atraumatic, normocephalic Eye exam: PRESENT: conjunctiva pink, EOMI, PERRLA. ABSENT: scleral icterus Ear exam: PRESENT: normal external ear exam Mouth exam: PRESENT: moist, tongue midline Neck exam: ABSENT: carotid bruit, JVD, lymphadenopathy, thyromegaly Respiratory exam: PRESENT: clear to auscultation harley. ABSENT: rales, rhonchi, wheezes Cardiovascular exam: PRESENT: RRR. ABSENT: diastolic murmur, rubs, systolic murmur Pulses: PRESENT: normal dorsalis pedis pul Vascular exam: PRESENT: normal capillary refill GI/Abdominal exam: PRESENT: normal bowel sounds, soft. ABSENT: distended, guarding, mass, organolmegaly, rebound, tenderness Rectal exam: PRESENT: deferred Extremities exam: PRESENT: full ROM. ABSENT: calf tenderness, clubbing, pedal edema Neurological exam: PRESENT: alert, awake, oriented to person, oriented to place, oriented to time, oriented to situation, CN II-XII grossly intact, other - Tardive dyskinesia. ABSENT: motor sensory deficit Psychiatric exam: PRESENT: appropriate affect, normal mood. ABSENT: homicidal ideation, suicidal ideation Skin exam: PRESENT: dry, intact, warm. ABSENT: cyanosis, rash Results Laboratory Results: 04/07/18 17:45 04/07/18 21:00 04/07/18 04/07/18 04/07/18 17:45 17:45 17:45 WBC 7.3 RBC 4.65 Hgb 15.9 Hct 44.5 MCV 96 MCH 34.2 H MCHC 35.8 RDW 13.0 Plt Count 148 L Seg Neutrophils % 80.5 H Lymphocytes % 12.5 L Monocytes % 6.8 Eosinophils % 0.1 Basophils % 0.1 Absolute Neutrophils 5.9 Absolute Lymphocytes 0.9 Absolute Monocytes 0.5 Absolute Eosinophils 0.0 Absolute Basophils 0.0 Sodium 123.7 L Potassium 3.9 Chloride 83 L Carbon Dioxide 27 Anion Gap 14 BUN 8 Creatinine 0.57 Est GFR ( Amer) > 60 Est GFR (Non-Af Amer) > 60 Glucose 105 Serum Osmolality 255 L Calcium 9.8 Magnesium Total Bilirubin 1.1 AST 29 ALT 15 L Alkaline Phosphatase 72 Total Protein 7.5 Albumin 4.8 Lipase TSH Free T4 Free T3 pg/mL Urine Color Urine Appearance Urine pH Ur Specific [place] Urine Protein Urine Glucose (UA) Urine Ketones Urine Blood Urine Nitrite Ur Leukocyte Esterase Urine WBC (Auto) Urine RBC (Auto) Urine Osmolality 04/07/18 04/07/18 04/07/18 17:45 17:45 20:02 WBC RBC Hgb Hct MCV MCH MCHC RDW Plt Count Seg Neutrophils % Lymphocytes % Monocytes % Eosinophils % Basophils % Absolute Neutrophils Absolute Lymphocytes Absolute Monocytes Absolute Eosinophils Absolute Basophils Sodium Potassium Chloride Carbon Dioxide Anion Gap BUN Creatinine Est GFR ( Amer) Est GFR (Non-Af Amer) Glucose Serum Osmolality Calcium Magnesium Total Bilirubin AST ALT Alkaline Phosphatase Total Protein Albumin Lipase 99.7 TSH 0.33 L Free T4 1.46 Free T3 pg/mL 3.47 Urine Color Urine Appearance Urine pH Ur Specific [place] Urine Protein Urine Glucose (UA) Urine Ketones Urine Blood Urine Nitrite Ur Leukocyte Esterase Urine WBC (Auto) Urine RBC (Auto) Urine Osmolality 291 L 04/07/18 04/07/18 20:02 21:00 WBC RBC Hgb Hct MCV MCH MCHC RDW Plt Count Seg Neutrophils % Lymphocytes % Monocytes % Eosinophils % Basophils % Absolute Neutrophils Absolute Lymphocytes Absolute Monocytes Absolute Eosinophils Absolute Basophils Sodium 125.2 L Potassium 4.1 Chloride 87 L Carbon Dioxide 24 Anion Gap 14 BUN 8 Creatinine 0.47 L Est GFR ( Amer) > 60 Est GFR (Non-Af Amer) > 60 Glucose 111 H Serum Osmolality Calcium 10.0 Magnesium 1.7 Total Bilirubin AST ALT Alkaline Phosphatase Total Protein Albumin Lipase TSH Free T4 Free T3 pg/mL Urine Color YELLOW Urine Appearance CLEAR Urine pH 7.0 Ur Specific [place] 1.009 Urine Protein NEGATIVE Urine Glucose (UA) NEGATIVE Urine Ketones 20 H Urine Blood SMALL H Urine Nitrite NEGATIVE Ur Leukocyte Esterase NEGATIVE Urine WBC (Auto) 1 Urine RBC (Auto) 4 Urine Osmolality 04/07/18 04/07/18 17:45 17:45 Creatine Kinase 120 CK-MB (CK-2) 2.54 Troponin I < 0.012 Impressions: Chest X-Ray 04/07/18 18:43 IMPRESSION: NO ACUTE RADIOGRAPHIC FINDING IN THE CHEST. Head CT 04/07/18 18:43 IMPRESSION: NORMAL BRAIN CT WITHOUT CONTRAST. EVIDENCE OF ACUTE STROKE: NO. Assessment & Plan - Diagnosis (1) Primary polydipsia Is this a current diagnosis for this admission?: Yes Plan: Fluid restriction, follow-up chemistry every 4 hours, education, hypertonic as needed nausea vomiting or seizure. (2) Hyponatremia with decreased serum osmolality Is this a current diagnosis for this admission?: Yes Plan: Secondary to #1, follow-up chemistry every 4 hours (3) Alcohol dependence Is this a current diagnosis for this admission?: Yes Plan: Thiamine, folate, Ativan as needed (4) Tobacco dependence Is this a current diagnosis for this admission?: Yes Plan: [id number] history, 20 pound weight loss in the last 3 months, follow-up CT chest, tobacco Dependence patient received tobacco cessation counseling and offered nicotine replacement options (5) Weight loss Is this a current diagnosis for this admission?: Yes Plan: 20 pound weight loss in 3 months, [id number] history of tobacco, follow-up CT chest. - Time Time Spent: 50 to 70 Minutes - Inpatient Certification Medical Necessity: Need Close Monitoring Due to Risk of Patient Decompensation
[2018-04-08] MEDS: ATORVASTATIN CALCIUM 80 MG TABLET PO SCH ×2 (00:03→21:27)
[2018-04-08] MEDS: TRAZODONE HCL 50 MG TABLET PO SCH ×2 (00:04→21:27)
[2018-04-08] MEDS: GABAPENTIN 300 MG CAPSULE PO SCH ×4 (00:04→21:27)
[2018-04-08] MEDS: HEPARIN SOD (PORCINE) 5,000 UNIT/ML 1 ML SYRINGE SUBCUT SCH ×4 (00:04→21:28)
[2018-04-08] MEDS: FOLIC ACID 1 MG TABLET PO SCH ×2 (00:04→09:14)
[2018-04-08] MEDS: THIAMINE HCL 100 MG TABLET PO SCH ×2 (00:09→09:14)
[2018-04-08 03:21] LABS: ABSOLUTE LYMPHOCYTES (AUTO) 2.1 10^3/uL (0.5-4.7); ABSOLUTE MONOCYTES (AUTO) 0.8 10^3/uL (0.1-1.4); ABSOLUTE NEUT (AUTO) 5.8 10^3/uL (1.7-8.2); BASOPHILS % (AUTO) 0.1 % (0-2); EOSINOPHILS % (AUTO) 0.3 % (0-6); HEMATOCRIT 45.1 % (37.9-51.0); HEMOGLOBIN 15.9 g/dL (13.5-17.0); LYMPHOCYTES % (AUTO) 23.9 % (13-45); MEAN CORPUSCULAR HEMOGLOBIN 33.7 pg (27.0-33.4); MEAN CORPUSCULAR HGB CONC 35.3 g/dL (32.0-36.0); MEAN CORPUSCULAR VOLUME 95 fl (80-97); PLATELET COUNT 145 10^3/uL (150-450); RED BLOOD COUNT 4.73 10^6/uL (4.35-5.55); SEGMENTED NEUTROPHILS % (AUTO) 66.7 % (42-78); TOTAL CELLS COUNTED % (AUTO) 100 %; WHITE BLOOD COUNT 8.6 10^3/uL (4.0-10.5)
[2018-04-08 03:36] LABS: ANION GAP 12 (5-19); BLOOD UREA NITROGEN 8 mg/dL (7-20); CALCIUM 9.7 mg/dL (8.4-10.2); CARBON DIOXIDE 26 mmol/L (22-30); CHLORIDE 91 mmol/L (98-107); GLUCOSE 87 mg/dL (75-110); POTASSIUM 3.7 mmol/L (3.6-5.0); SODIUM 128.9 mmol/L (137-145)
[2018-04-08] MEDS ORDERED: POTASSIUM CHLORIDE 10 MEQ CAPSULE.ER PO ONE (06:00)
--- NOTE | 2018-04-08 07:49 | EKG REPORT ---
SEVERITY:- OTHERWISE NORMAL ECG - SINUS RHYTHM BORDERLINE RIGHT AXIS DEVIATION : Confirmed by: Todd Tello MD 08-Apr-2018 07:48:49
--- NOTE | 2018-04-08 08:47 | RADIOLOGY REPORT (SQ) ---
EXAM DESCRIPTION: CT CHEST WITHOUT COMPLETED DATE/TIME: 04/08/2018 7:45 am REASON FOR STUDY: Weight loss, [id number] history of smoking COMPARISON: Chest radiograph from 04/07/2018 TECHNIQUE: CT scan performed of the chest without intravenous contrast. Images reviewed with lung, soft tissue and bone windows. Reconstructed coronal and sagittal MPR images reviewed. All images st ored on PACS. All CT scanners at this facility use dose modulation, iterative reconstruction, and/or weight based d osing when appropriate to reduce radiation dose to as low as reasonably achievable (ALARA). [facility]: Dose Right [facility]: CareDose [facility]: Dose Right [facility]: Teradose 4D [facility]: Smart Augmentra RADIATION DOSE: CT Rad equipment meets quality standard of care and radiation dose reduction techniq ues were employed. CTDIvol: 6.0 mGy. DLP: 237 mGy-cm. mGy. LIMITATIONS: No technical limitations. FINDINGS: LUNGS AND PLEURA: No masses, infiltrates, or pneumothorax. No pleural effusions or pleura l calcifications. Minimal centrilobular emphysema and bilateral bronchial wall thickening. HILAR AND MEDIASTINAL STRUCTURES: No identified masses or abnormal nodes. No obvious aneurysm. HEART AND VASCULAR STRUCTURES: No aneurysm. No pericardial effusion. Coronary artery calcifications and/or stents. UPPER ABDOMEN: No significant findings. Limited exam. THYROID AND OTHER SOFT TISSUES: No masses. No adenopathy. BONES: No significant finding. HARDWARE: None in the chest. OTHER: No other significant findings. IMPRESSION: 1. No mass or significant pulmonary nodule. Mild emphysema and bronchial wall thickenin g, in keeping with smoking history. Consider annual CT lung cancer screening. 2. Coronary artery disease. TECHNICAL DOCUMENTATION: JOB ID: [id number] Quality ID # [id number]: Final reports with documentation of one or more dose reduction techniques (e.g., Au tomated exposure control, adjustment of the mA and/or kV according to patient size, use of iterative reconstruction technique) 2010 [employer]- All Rights Reserved Reading location - IP/workstation name: [email or web address]
[2018-04-08] MEDS: TAMSULOSIN HCL 0.4 MG CAP.SR.24H PO SCH (09:14)
[2018-04-08] MEDS: NIFEDIPINE 30 MG TAB.ER.24 PO SCH (09:14)
[2018-04-08] MEDS: DIAZEPAM 5 MG TABLET PO SCH ×2 (09:15→21:28)
[2018-04-08] MEDS: CLOPIDOGREL BISULFATE 75 MG TABLET PO SCH (09:15)
[2018-04-08 09:24] LABS: ANION GAP 11 (5-19); BLOOD UREA NITROGEN 10 mg/dL (7-20); CALCIUM 10.3 mg/dL (8.4-10.2); CARBON DIOXIDE 27 mmol/L (22-30); CHLORIDE 91 mmol/L (98-107); GLUCOSE 135 mg/dL (75-110); SODIUM 128.9 mmol/L (137-145)
[2018-04-08] MEDS: ATENOLOL 50 MG TABLET PO SCH ×2 (09:24→21:27)
[2018-04-08] MEDS: CITALOPRAM HYDROBROMIDE 20 MG TABLET PO SCH (09:25)
[2018-04-08] MEDS: NICOTINE 14 MG/24 HR PATCH.TD24 TD SCH (15:09)
[2018-04-08 15:21] LABS: ANION GAP 13 (5-19); BLOOD UREA NITROGEN 13 mg/dL (7-20); CALCIUM 10.1 mg/dL (8.4-10.2); CARBON DIOXIDE 25 mmol/L (22-30); CHLORIDE 92 mmol/L (98-107); GLUCOSE 123 mg/dL (75-110); SODIUM 129.7 mmol/L (137-145)
--- NOTE | 2018-04-08 17:04 | PDOC PROGRESS REPORT ---
Subjective Progress Note for:: 04/08/18 Subjective:: The patient has less nausea. He does still report some dyspnea at rest. Reason For Visit: HYPONATREMIA,NAUSEA,VOMITING Physical Exam Vital Signs: Temp Pulse Resp BP Pulse Ox 99.1 F 72 16 122/75 98 04/08/18 12:08 04/08/18 14:00 04/08/18 12:08 04/08/18 12:08 04/08/18 12:08 Intake & Output 04/07/18 04/08/18 04/09/18 06:59 06:59 06:59 Intake Total 100 300 Balance 100 300 Weight 78 kg General appearance: PRESENT: no acute distress, cooperative, well-developed Head exam: PRESENT: atraumatic, normocephalic Respiratory exam: PRESENT: clear to auscultation harley, symmetrical, unlabored. ABSENT: accessory muscle use, prolonged expiratory phas, rales, rhonchi, wheezes Cardiovascular exam: PRESENT: RRR, +S1, +S2 GI/Abdominal exam: PRESENT: normal bowel sounds, soft. ABSENT: tenderness Extremities exam: ABSENT: pedal edema Musculoskeletal exam: PRESENT: normal inspection Neurological exam: PRESENT: alert, awake, oriented to person, oriented to place, oriented to time, oriented to situation, CN II-XII grossly intact Psychiatric exam: PRESENT: appropriate affect, normal mood. ABSENT: agitated, anxious Focused psych exam: ABSENT: restlessness Results Laboratory Results: 04/08/18 03:03 04/08/18 14:50 04/07/18 04/07/18 04/07/18 17:45 17:45 17:45 WBC 7.3 RBC 4.65 Hgb 15.9 Hct 44.5 MCV 96 MCH 34.2 H MCHC 35.8 RDW 13.0 Plt Count 148 L Seg Neutrophils % 80.5 H Lymphocytes % 12.5 L Monocytes % 6.8 Eosinophils % 0.1 Basophils % 0.1 Absolute Neutrophils 5.9 Absolute Lymphocytes 0.9 Absolute Monocytes 0.5 Absolute Eosinophils 0.0 Absolute Basophils 0.0 Sodium 123.7 L Potassium 3.9 Chloride 83 L Carbon Dioxide 27 Anion Gap 14 BUN 8 Creatinine 0.57 Est GFR ( Amer) > 60 Est GFR (Non-Af Amer) > 60 Glucose 105 Serum Osmolality 255 L Calcium 9.8 Magnesium Total Bilirubin 1.1 AST 29 ALT 15 L Alkaline Phosphatase 72 Total Protein 7.5 Albumin 4.8 Lipase TSH Free T4 Free T3 pg/mL Urine Color Urine Appearance Urine pH Ur Specific [place] Urine Protein Urine Glucose (UA) Urine Ketones Urine Blood Urine Nitrite Ur Leukocyte Esterase Urine WBC (Auto) Urine RBC (Auto) Urine Osmolality 04/07/18 04/07/18 04/07/18 17:45 17:45 20:02 WBC RBC Hgb Hct MCV MCH MCHC RDW Plt Count Seg Neutrophils % Lymphocytes % Monocytes % Eosinophils % Basophils % Absolute Neutrophils Absolute Lymphocytes Absolute Monocytes Absolute Eosinophils Absolute Basophils Sodium Potassium Chloride Carbon Dioxide Anion Gap BUN Creatinine Est GFR ( Amer) Est GFR (Non-Af Amer) Glucose Serum Osmolality Calcium Magnesium Total Bilirubin AST ALT Alkaline Phosphatase Total Protein Albumin Lipase 99.7 TSH 0.33 L Free T4 1.46 Free T3 pg/mL 3.47 Urine Color Urine Appearance Urine pH Ur Specific [place] Urine Protein Urine Glucose (UA) Urine Ketones Urine Blood Urine Nitrite Ur Leukocyte Esterase Urine WBC (Auto) Urine RBC (Auto) Urine Osmolality 291 L 04/07/18 04/07/18 04/08/18 20:02 21:00 03:03 WBC RBC Hgb Hct MCV MCH MCHC RDW Plt Count Seg Neutrophils % Lymphocytes % Monocytes % Eosinophils % Basophils % Absolute Neutrophils Absolute Lymphocytes Absolute Monocytes Absolute Eosinophils Absolute Basophils Sodium 125.2 L 128.9 L Potassium 4.1 3.7 Chloride 87 L 91 L Carbon Dioxide 24 26 Anion Gap 14 12 BUN 8 8 Creatinine 0.47 L 0.55 Est GFR ( Amer) > 60 > 60 Est GFR (Non-Af Amer) > 60 > 60 Glucose 111 H 87 Serum Osmolality Calcium 10.0 9.7 Magnesium 1.7 Total Bilirubin AST ALT Alkaline Phosphatase Total Protein Albumin Lipase TSH Free T4 Free T3 pg/mL Urine Color YELLOW Urine Appearance CLEAR Urine pH 7.0 Ur Specific [place] 1.009 Urine Protein NEGATIVE Urine Glucose (UA) NEGATIVE Urine Ketones 20 H Urine Blood SMALL H Urine Nitrite NEGATIVE Ur Leukocyte Esterase NEGATIVE Urine WBC (Auto) 1 Urine RBC (Auto) 4 Urine Osmolality 04/08/18 04/08/18 04/08/18 03:03 08:56 14:50 WBC 8.6 RBC 4.73 Hgb 15.9 Hct 45.1 MCV 95 MCH 33.7 H MCHC 35.3 RDW 13.0 Plt Count 145 L Seg Neutrophils % 66.7 Lymphocytes % 23.9 Monocytes % 9.0 Eosinophils % 0.3 Basophils % 0.1 Absolute Neutrophils 5.8 Absolute Lymphocytes 2.1 Absolute Monocytes 0.8 Absolute Eosinophils 0.0 Absolute Basophils 0.0 Sodium 128.9 L 129.7 L Potassium 4.0 4.0 Chloride 91 L 92 L Carbon Dioxide 27 25 Anion Gap 11 13 BUN 10 13 Creatinine 0.59 0.62 Est GFR ( Amer) > 60 > 60 Est GFR (Non-Af Amer) > 60 > 60 Glucose 135 H 123 H Serum Osmolality Calcium 10.3 H 10.1 Magnesium Total Bilirubin AST ALT Alkaline Phosphatase Total Protein Albumin Lipase TSH Free T4 Free T3 pg/mL Urine Color Urine Appearance Urine pH Ur Specific [place] Urine Protein Urine Glucose (UA) Urine Ketones Urine Blood Urine Nitrite Ur Leukocyte Esterase Urine WBC (Auto) Urine RBC (Auto) Urine Osmolality 04/07/18 04/07/18 17:45 17:45 Creatine Kinase 120 CK-MB (CK-2) 2.54 Troponin I < 0.012 Impressions: Chest CT 04/07/18 00:00 IMPRESSION: 1. No mass or significant pulmonary nodule. Mild emphysema and bronchial wall thickening, in keeping with smoking history. Consider annual CT lung cancer screening. 2. Coronary artery disease. Chest X-Ray 04/07/18 18:43 IMPRESSION: NO ACUTE RADIOGRAPHIC FINDING IN THE CHEST. Head CT 04/07/18 18:43 IMPRESSION: NORMAL BRAIN CT WITHOUT CONTRAST. EVIDENCE OF ACUTE STROKE: NO. Assessment & Plan - Diagnosis (1) Hyponatremia with decreased serum osmolality Is this a current diagnosis for this admission?: Yes Plan: Serum sodium is improved. It is 129. We will continue the fluid restriction. Patient admits to drinking lots of fluids because he "does not want to get deh ydrated ". I expect his serum sodium to correct by tomorrow. (2) Primary polydipsia Is this a current diagnosis for this admission?: Yes Plan: As noted above. (3) Tobacco dependence Is this a current diagnosis for this admission?: Yes Plan: Encourage smoking cessation and (4) Alcohol dependence Qualifiers: Substance use status: uncomplicated Qualified Code(s): F10.20 - Alcohol dependence, uncomplicated Is this a current diagnosis for this admission?: Yes Plan: Monitor the patient for any signs of withdrawal. - Time Time Spent with patient: 15-24 minutes Smoking Cessation Education: 3 to 10 minutes Medications reviewed and adjusted accordingly: Yes Anticipated discharge: Home
[2018-04-08] MEDS: FAMOTIDINE 20 MG TABLET PO SCH (21:28)
[2018-04-08 22:03] LABS: ANION GAP 9 (5-19); BLOOD UREA NITROGEN 19 mg/dL (7-20); CALCIUM 10.3 mg/dL (8.4-10.2); CARBON DIOXIDE 28 mmol/L (22-30); CHLORIDE 94 mmol/L (98-107); GLUCOSE 115 mg/dL (75-110); POTASSIUM 4.1 mmol/L (3.6-5.0); SODIUM 131.3 mmol/L (137-145)
[2018-04-09] MEDS: HEPARIN SOD (PORCINE) 5,000 UNIT/ML 1 ML SYRINGE SUBCUT SCH (05:20)
[2018-04-09] MEDS: GABAPENTIN 300 MG CAPSULE PO SCH (05:22)
[2018-04-09] MEDS: FOLIC ACID 1 MG TABLET PO SCH (10:08)
[2018-04-09] MEDS: NIFEDIPINE 30 MG TAB.ER.24 PO SCH (10:08)
[2018-04-09] MEDS: THIAMINE HCL 100 MG TABLET PO SCH (10:09)
[2018-04-09] MEDS: DIAZEPAM 5 MG TABLET PO SCH (10:09)
[2018-04-09] MEDS: CLOPIDOGREL BISULFATE 75 MG TABLET PO SCH (10:09)
[2018-04-09] MEDS: TAMSULOSIN HCL 0.4 MG CAP.SR.24H PO SCH (10:09)
[2018-04-09] MEDS: CITALOPRAM HYDROBROMIDE 20 MG TABLET PO SCH (10:09)
[2018-04-09] MEDS: FAMOTIDINE 20 MG TABLET PO SCH (10:09)
[2018-04-09] MEDS: ATENOLOL 50 MG TABLET PO SCH (10:09)
[2018-04-09] MEDS: NICOTINE 14 MG/24 HR PATCH.TD24 TD SCH (10:10)
--- NOTE | 2018-04-09 12:23 | PDOC DISCHARGE SUMMARY ---
General - Admit/Disc Date/PCP Admission Date/Primary Care Provider: 04/07/18 20:43 ALEIDA HUANG MD Discharge Date: 04/09/18 - Discharge Diagnosis (1) Hyponatremia with decreased serum osmolality Is this a current diagnosis for this admission?: Yes Summary: The patient originally presented with a serum sodium of 123 and hypoosmolar urine. He reports a history of polydipsia because he did not want to become dehydrated. His primary presenting symptom was actually shortness of breath but there was no evidence of acute lung disease. With simple fluid restriction the patient's serum sodium is up to 131. He will continue his fluid restriction at home. I have set his volume at 1.5 L until he follows up with his primary care physician and obtains repeat blood work. (2) Primary polydipsia Is this a current diagnosis for this admission?: Yes Summary: As noted above (3) Tobacco dependence Is this a current diagnosis for this admission?: Yes Summary: I suggested the patient continue the nicotine patch and stop smoking. (4) Alcohol dependence Is this a current diagnosis for this admission?: Yes Summary: Patient should maintain a B complex vitamin with 1 mg folic acid daily. He should abstain from alcohol and consider a treatment program. - Additional Information Resuscitation Status: Full Code Discharge Diet: Cardiac Discharge Activity: Activity As Tolerated Home Medications: Atenolol [Tenormin] 25 mg PO Q12 04/07/18 Atorvastatin Calcium [Lipitor 80 mg Tablet] 80 mg PO QHS 04/07/18 Citalopram Hydrobromide [Celexa 40 mg Tablet] 40 mg PO DAILY 04/07/18 Clopidogrel Bisulfate [Plavix 75 mg Tablet] 75 mg PO DAILY 04/07/18 Gabapentin [Neurontin 300 mg Capsule] 300 mg PO Q8 04/07/18 Losartan/Hydrochlorothiazide [Hyzaar 100-25 Tablet] 1 tab PO DAILY 04/07/18 Nifedipine [Nifedipine ER] 30 mg PO DAILY 04/07/18 Ranitidine HCl [Zantac] 300 mg PO DAILY 04/07/18 Tamsulosin HCl [Flomax 0.4 mg Cap.sr] 0.4 mg PO DAILY 04/07/18 Valacyclovir HCl [Valtrex 500 mg Tablet] 500 mg PO DAILY 04/07/18 Acetaminophen [Tylenol 325 mg Tablet] 325 mg PO Q4HP PRN tablet 04/09/18 Nicotine [Nicoderm 14 mg/24 Hr Transdermal Patch] 1 each TD DAILY patch.[id number] 04/09/18 History of Present Illness Patient complains of: Shortness of breath History of Present Illness: FESTUS ORTIZ is a 67 year old male who was consuming significant amounts of water prior to his admission. His initial complaint was shortness of breath. He had a negative pulmonary workup but his serum sodium was only 123. He does have a history of hypertension, alcohol dependence and nicotine addiction. Hospital Course Hospital Course: The patient had a benign hospital course. With fluid restriction the patient's serum sodium has improved nicely. He is at 131 today. I suggested he continue a 1.5 L fluid restriction ongoing and he does have a follow-up with his primary care physician on April 22 to recheck blood work. He did request a nicotine patch. Valium was also available for the prophylaxis of alcohol withdrawal. Physical Exam Vital Signs: Temp Pulse Resp BP Pulse Ox 97.9 F 57 L 18 128/72 H 94 04/09/18 07:22 04/09/18 07:22 04/09/18 07:22 04/09/18 07:22 04/09/18 07:22 Intake & Output 04/08/18 04/09/18 04/10/18 06:59 06:59 06:59 Intake Total 100 575 Balance 100 575 Weight 78 kg 76.5 kg General appearance: PRESENT: no acute distress, cooperative, well-developed Eye exam: PRESENT: conjunctiva pink. ABSENT: scleral icterus Mouth exam: PRESENT: dry mucosa Respiratory exam: PRESENT: clear to auscultation harley, symmetrical, unlabored. ABSENT: rales, rhonchi, wheezes Cardiovascular exam: PRESENT: RRR, +S1, +S2 GI/Abdominal exam: PRESENT: normal bowel sounds, soft. ABSENT: tenderness Musculoskeletal exam: PRESENT: ambulatory Neurological exam: PRESENT: alert, awake, oriented to person, oriented to place, oriented to time, oriented to situation, CN II-XII grossly intact Psychiatric exam: PRESENT: appropriate affect, normal mood. ABSENT: agitated, anxious Focused psych exam: ABSENT: restlessness Skin exam: PRESENT: dry, normal color, warm Results Laboratory Results: 04/08/18 03:03 04/08/18 21:21 12/20/18 12/20/18 14:50 21:21 Sodium 129.7 L 131.3 L Potassium 4.0 4.1 Chloride 92 L 94 L Carbon Dioxide 25 28 Anion Gap 13 9 BUN 13 19 Creatinine 0.62 0.90 Est GFR ( Amer) > 60 > 60 Est GFR (Non-Af Amer) > 60 > 60 Glucose 123 H 115 H Calcium 10.1 10.3 H 04/07/18 04/07/18 17:45 17:45 Creatine Kinase 120 CK-MB (CK-2) 2.54 Troponin I < 0.012 Impressions: Chest CT 04/07/18 00:00 IMPRESSION: 1. No mass or significant pulmonary nodule. Mild emphysema and bronchial wall thickening, in keeping with smoking history. Consider annual CT lung cancer screening. 2. Coronary artery disease. Chest X-Ray 04/07/18 18:43 IMPRESSION: NO ACUTE RADIOGRAPHIC FINDING IN THE CHEST. Head CT 04/07/18 18:43 IMPRESSION: NORMAL BRAIN CT WITHOUT CONTRAST. EVIDENCE OF ACUTE STROKE: NO. Qualifiers - * PATIENT BEING DISCHARGED WITH ANY OF THE FOLLOWING DIAGNOSIS: No Plan Time Spent: Less than 30 Minutes
[2018-04-09 12:27] VITALS: BP 141/78
== END 2018-04-09 12:45 | disposition home or self-care (01) | DRG 641 ==
LOC: ER 18:06 → EH 20:43 → 3W 22:44
PROVIDERS: ADMIT Internal Medicine; ATTEND Internal Medicine
DX: E87.1 Hypo-osmolality and hyponatremia (principal); F17.210 Nicotine dependence, cigarettes, uncomplicated; I25.2 Old myocardial infarction; J44.9 Chronic obstructive pulmonary disease, unspecified; I25.10 Atherosclerotic heart disease of native coronary artery without angina pectoris; Z95.5 Presence of coronary angioplasty implant and graft; F10.20 Alcohol dependence, uncomplicated; I10 Essential (primary) hypertension; R63.1 Polydipsia; Z79.899 Other long term (current) drug therapy
CPT/HCPCS: 36415; 70450; 71045; 71250; 80048; 80053; 80307; 81001; 82550; 82553; 83690; 83735; 83930; 83935; 84133; 84300; 84439; 84443; 84481; 84484; 85025; 93005; 93010; 99291; J1644; J1940